=== PATIENT | male | born 1960 | race Hispanic/Latino ===

== ENCOUNTER → 2018-09-14 | Outpatient (CLI) | payer OTHER | END | disposition home or self-care (01) | LOC: OIH 10:29 | PROVIDERS: ATTEND Family Medicine | DX: M19.041 Primary osteoarthritis, right hand (principal) | CPT/HCPCS: 73130 ==

== ENCOUNTER → 2018-10-06 | Outpatient (CLI) | payer OTHER | END | disposition home or self-care (01) | LOC: OIH 13:07 | PROVIDERS: ATTEND Internal Medicine | DX: M19.042 Primary osteoarthritis, left hand (principal); M19.041 Primary osteoarthritis, right hand; M19.072 Primary osteoarthritis, left ankle and foot; M19.071 Primary osteoarthritis, right ankle and foot; M06.4 Inflammatory polyarthropathy | CPT/HCPCS: 73120; 73620 ==

== ENCOUNTER 2019-05-11 15:20 | Emergency (ER) | payer OTHER ==
[2019-05-11] MEDS ORDERED: CEFAZOLIN SODIUM 1 GM VIAL ONE (15:53)
[2019-05-11] MEDS ORDERED: LIDOCAINE HCL-MPF 1% 2ML VIAL ONE (15:53)
[2019-05-11] MEDS ORDERED: TETANUS/DIPHTHERIA TOXOID [ADULT] 0.5 ML VIAL IM ONE (15:54)
== END 2019-05-11 17:23 | disposition home or self-care (01) ==
LOC: EDH 15:20
DX: S61.432A Puncture wound without foreign body of left hand, initial encounter (principal); W31.0XXA Contact with mining and earth-drilling machinery, initial encounter; Y99.0 Civilian activity done for income or pay; Y93.89 Activity, other specified; Y92.89 Other specified places as the place of occurrence of the external cause; I10 Essential (primary) hypertension; M10.9 Gout, unspecified
CPT/HCPCS: 73130; 90471; 90714; 96372; 99284; J0690; J3490